=== PATIENT | male | born 1975 | race Caucasian/White ===

== ENCOUNTER 2018-01-25 16:22 | Emergency (ER) | payer OTHER ==
[~2018-01-25] VITALS: Ht 165.1 cm; Wt 70.0 kg
[~2018-01-25 16:22] MED LIST: ACETAMINOP160 MG/51 GT; ACETAMINOP650 MG/20. PEG; ACETAMINOPHEN325 M1 GT; ADULT MUCU100 MG/5 M G-TUBE; ATIVAN2 MG/1 ML G-TUBE; AVELOX400 MG G-TUBE; AVELOX400 MG PO; Ativan GT; BACTERICIN30 GM TP; BENEFIBER1 EACH PEG; BISAC-EVAC10 MG PR; BISACODYL SUPP10 MG RC; CALTRATE 6001 TABLE1 GT; CEFEPIME HCL2 GM IM; CELEXA10 MG PEG; CERTA-VITE240 ML GT; CETIRIZINE HCL10 M2 GT; CLEOCIN300 MG PO; CLONAZEPAM0.5 MG G-TUBE; CLONAZEPAM1 MG GT; COLACE10 MG/ML GT; COLACE10 MG/ML PEG; DEPAKENE250 MG/5 M GT; DEPAKOTE SPRIN125 MG GT; DIOCTO50 MG/5 ML GT; DOCU LIQUI50 MG/5 ML GT; DOCU SOFT100 MG PEG; DULCOLAX10 MG PR; DUONEB 2.5-0.5 M3 ML AEROSOL; DUONEB 2.5-0.5 M3 ML IH; DUONEB3 ML IH; ENOXAPARIN40 MG/0.4 SC; FLEET ENEMA-AD118 ML PR; FUROSEMIDE40 MG GT; GLYCOLAX17 GM G-TUBE; GUIATUSS DM SY240 ML GT; GUIATUSS100 MG/5 M GT; Heparin Sodium SC; IBUPROFEN400 MG G-TUBE; K-SOL20 MEQ/15 GT; LEVOTHYROXINE100 MCG G-TUBE; LEVOTHYROXINE75 MCG GT; LORATADINE10 M2 GT; MAXIPIME2 GM IV; MIRALAX17 GM GT; MIRALAX255 GM GT; MUCUS RELIEF400 MG GT; MULTIVITAM9 MG/15 M1 GT; MULTIVITAMIN1 EAC2 G-TUBE; NASAL SPRAY30 M1 NS; OCEAN NASAL 0.645 ML BOTH NARES; ONE-A-DAY ESSE1 EAC1 GT; OSCAL, OYSTER500 MG G-TUBE; PHENERGAN1.25 MG/ML PEG; PREVACID SOLUTA30 MG GT; PREVACID30 MG GT; PROSOURCE LIQUI30 ML GT; PROTONIX40 MG GT; QUETIAPINE FUMA25 MG PO; QUETIAPINE FUMA50 MG GT; RANITIDINE HCL150 MG GT; RISAMINE OINTM113 GM TP; ROBITUSSIN100 MG/5 M GT; SALINE MIST45 ML BOTH NARES; SALINE NASAL SP45 ML BOTH NARES; SEROQUEL100 MG G-TUBE; SEROQUEL100 MG GT; SEROQUEL12.5 MG GT; SEROQUEL200 MG GT; SEROQUEL200 MG PEG; SEROQUEL300 MG GT; SEROQUEL50 MG GT; SILACE50 MG/5 ML GT; SILVER NITRATE30 GM TP; SODIUM CHLORIDE45 ML BOTH NARES; SYNTHROID75 MCG GT; VALPROIC A250 MG/5 M G-TUBE; VALPROIC A250 MG/5 M GT; VANCOMYCIN1500 MG/25 IV; VITAMIN D31000 UNI2 GT; VITAMIN D31000 UNIT GT; ZANTAC150 MG G-TUBE; ZANTAC150 MG GT; ZOSYN3.375 GM/5 IV; ZYRTEC10 M2 PEG; ZYRTEC10 M3 GT; Zantac GT; Zithromax PEG; [UNRECOGNIZED DRUG - OTHER] GT; [UNRECOGNIZED DRUG - OTHER] TP
[2018-01-25 17:17] LABS: HEMATOCRIT 46.8 % (38.0-50.0); HEMOGLOBIN 15.4 G/DL (12.5-16.6); MCH 29.6 PG (29.0-34.0); MCHC 32.9 G/DL (30.0-36.0); MCV 89.8 FL (86-99); PLATELET COUNT 247 K/uL (156-360); RBC DIS.WIDTH-CV 12.9 % (11.8-14.6); RBC DIS.WIDTH-SD 42.1 % (39-53); RED BLOOD COUNT 5.21 M/uL (4.00-5.50); WHITE BLOOD COUNT 8.1 K/uL (4.1-10.2)
[2018-01-25 17:25] LABS: CHLORIDE 101 mEq/L (99-109); POTASSIUM 4.4 mEq/L (3.7-5.4); SODIUM 143 mEq/L (136-147)
[2018-01-25 17:27] LABS: GLUCOSE 81 mg/dL (70-99)
[2018-01-25 17:30] LABS: CREATININE 0.6 mg/dL (0.6-1.3); GFR ESTIMATE (CALCULATED) > 59 mL/min/ (58.99-99999)
[2018-01-25 17:31] LABS: UREA NITROGEN (BUN) 18 mg/dL (9-23)
[2018-01-25 18:21] LABS: APPEARANCE SL.HAZY ((CLEAR)); BILIRUBIN NEGATIVE; BLOOD NEGATIVE; COLOR YELLOW ((YELLOW)); GLUCOSE (STRIP) NEGATIVE; KETONES 5; LEUKOCYTES NEGATIVE; NITRITE NEGATIVE; PROTEIN (STRIP) NEGATIVE
[2018-01-25 18:25] LABS: BACTERIA NONE SEEN /HPF; EPITHELIAL CELLS NONE SEEN /HPF; MUCUS NONE SEEN /LPF; RED BLOOD CELLS 0-5 /HPF (0-5); UCUL ADDED? NO; WHITE BLOOD CELLS 0-5 /HPF (0-5)
[2018-01-26 01:12] VITALS: BP 102/75
== END 2018-01-26 01:43 ==
LOC: EME 16:22
PROVIDERS: Emergency Medicine
DX: J18.9 Pneumonia, unspecified organism (principal); R09.02 Hypoxemia; J45.909 Unspecified asthma, uncomplicated; K21.9 Gastro-esophageal reflux disease without esophagitis; M81.0 Age-related osteoporosis without current pathological fracture; R56.9 Unspecified convulsions; F41.9 Anxiety disorder, unspecified; F32.9 Major depressive disorder, single episode, unspecified; F31.9 Bipolar disorder, unspecified; Z88.5 Allergy status to narcotic agent; Z88.0 Allergy status to penicillin; Z88.1 Allergy status to other antibiotic agents
CPT/HCPCS: 71045; 71275; 80048; 81003; 83605; 85027; 87040; 94640; 99281; 99285; J0692; J7030

== ENCOUNTER 2018-04-24 12:28 | Inpatient (IN) | payer OTHER ==
[~2018-04-24] VITALS: Ht 177.8 cm; Wt 58.1 kg
[~2018-04-24 12:28] MED LIST changes: +KLONOPIN0.5 M1 GT
[2018-04-24 13:35] LABS: BASOPHIL (%) 0.2 % (0-1); BASOPHIL COUNT 0.1 K/uL (0-0.1); EOSINOPHIL (%) 0 % (0-5); HEMATOCRIT 43.7 % (38.0-50.0); HEMOGLOBIN 14.9 G/DL (12.5-16.6); IMMATURE GRANULOCYTE (%) 0.6 % (0.0-0.7); LYMPHOCYTE COUNT 0.8 K/uL (1.0-2.8); MCHC 34.1 G/DL (30.0-36.0); MCV 88.1 FL (86-99); MONOCYTE (%) 7.1 % (3-12); MONOCYTE COUNT 1.4 K/uL (0-0.8); NEUTROPHIL (%) 88.1 % (45-76); NEUTROPHIL COUNT 17.7 K/uL (1.8-6.4); PLATELET COUNT 207 K/uL (156-360); RBC DIS.WIDTH-CV 12.4 % (11.8-14.6); RBC DIS.WIDTH-SD 39.9 % (39-53); RED BLOOD COUNT 4.96 M/uL (4.00-5.50); WHITE BLOOD COUNT 20.1 K/uL (4.1-10.2)
[2018-04-24 13:46] LABS: ALBUMIN 3.7 g/dL (3.2-4.8)
[2018-04-24 13:47] LABS: CHLORIDE 101 mEq/L (99-109); POTASSIUM 4.1 mEq/L (3.7-5.4); SODIUM 138 mEq/L (136-147)
[2018-04-24 13:49] LABS: GLUCOSE 99 mg/dL (70-99); TOTAL PROTEIN 6.5 g/dL (6.4-8.3)
[2018-04-24 13:51] LABS: TOTAL BILIRUBIN 0.6 mg/dL (0.0-1.0)
[2018-04-24 13:51] LABS: APPEARANCE CLEAR ((CLEAR)); BILIRUBIN NEGATIVE; BLOOD NEGATIVE; COLOR YELLOW ((YELLOW)); GLUCOSE (STRIP) NEGATIVE; KETONES 5; LEUKOCYTES NEGATIVE; NITRITE NEGATIVE; PROTEIN (STRIP) NEGATIVE; SPECIFIC GRAVITY 1.016 (1.000-1.030); UCUL ADDED? NO
[2018-04-24 13:52] LABS: ALKALINE PHOSPHATASE 63 IU/L (3-129)
[2018-04-24 13:53] LABS: CREATININE 0.7 mg/dL (0.6-1.3); GFR ESTIMATE (CALCULATED) > 59 mL/min/ (58.99-99999)
[2018-04-24 13:54] LABS: AST (GOT) 17 IU/L (2-34); UREA NITROGEN (BUN) 18 mg/dL (9-23)
[2018-04-24 13:56] LABS: ALT (GPT) 14 IU/L (3-49); LIPASE 31 U/L (1.0-51.0)
[2018-04-24] MEDS ORDERED: ONDANSETRON ODT4 MG GT (17:49)
[2018-04-24] MEDS ORDERED: SENNA8.6 MG GT (17:50)
[2018-04-24] MEDS ORDERED: RANITIDINE15 MG/1 ML GT (17:51)
[2018-04-24] MEDS ORDERED: DEPAKOTE SPRIN125 MG GT ×2 (17:52)
[2018-04-24] MEDS ORDERED: TRANSDERM-SCOP1 EACH TD (17:53)
[2018-04-24] MEDS ORDERED: MULTI-VITE9 MG/15 ML GT (17:54)
[2018-04-24 21:42] VITALS: BP 134/70
[2018-04-24 23:54] VITALS: BP 114/58
[2018-04-25 04:04] VITALS: BP 131/61
[2018-04-25 06:01] LABS: BASOPHIL (%) 0.4 % (0-1); BASOPHIL COUNT 0.1 K/uL (0-0.1); EOSINOPHIL (%) 0.5 % (0-5); EOSINOPHIL COUNT 0.1 K/uL (0-0.3); HEMOGLOBIN 13.5 G/DL (12.5-16.6); IMMATURE GRANULOCYTE (%) 0.6 % (0.0-0.7); LYMPHOCYTE (%) 11.5 % (15-42); LYMPHOCYTE COUNT 1.9 K/uL (1.0-2.8); MCH 29.3 PG (29.0-34.0); MCHC 32.9 G/DL (30.0-36.0); MCV 89.1 FL (86-99); MONOCYTE COUNT 0.8 K/uL (0-0.8); NEUTROPHIL COUNT 13.2 K/uL (1.8-6.4); PLATELET COUNT 206 K/uL (156-360); RBC DIS.WIDTH-CV 12.5 % (11.8-14.6); RBC DIS.WIDTH-SD 41.1 % (39-53)
[2018-04-25 06:25] LABS: CHLORIDE 107 MEQ/L (99-109); CREATININE 0.5 MG/DL (0.6-1.3); GFR ESTIMATE (CALCULATED) > 59 mL/min/ (58.99-99999); GLUCOSE 84 mg/dL (70-99); POTASSIUM 4.3 MEQ/L (3.7-5.4); SODIUM 141 MEQ/L (136-147); UREA NITROGEN (BUN) 12 mg/dL (9-23)
[2018-04-25 07:52] VITALS: BP 120/68
[2018-04-25 16:38] VITALS: BP 126/78
[2018-04-26 00:54] VITALS: BP 136/69
[2018-04-26 04:09] LABS: BASOPHIL (%) 0.5 % (0-1); BASOPHIL COUNT 0.1 K/uL (0-0.1); EOSINOPHIL (%) 1.3 % (0-5); EOSINOPHIL COUNT 0.1 K/uL (0-0.3); HEMATOCRIT 41.5 % (38.0-50.0); HEMOGLOBIN 14.2 G/DL (12.5-16.6); IMMATURE GRANULOCYTE (%) 0.9 % (0.0-0.7); LYMPHOCYTE (%) 19.5 % (15-42); LYMPHOCYTE COUNT 1.9 K/uL (1.0-2.8); MCHC 34.2 G/DL (30.0-36.0); MCV 87.7 FL (86-99); MONOCYTE (%) 7.2 % (3-12); MONOCYTE COUNT 0.7 K/uL (0-0.8); NEUTROPHIL (%) 70.6 % (45-76); NEUTROPHIL COUNT 6.7 K/uL (1.8-6.4); PLATELET COUNT 191 K/uL (156-360); RBC DIS.WIDTH-CV 12.3 % (11.8-14.6); RBC DIS.WIDTH-SD 39.9 % (39-53); RED BLOOD COUNT 4.73 M/uL (4.00-5.50); WHITE BLOOD COUNT 9.5 K/uL (4.1-10.2)
[2018-04-26 04:24] LABS: CREATININE 0.5 mg/dL (0.6-1.3); GFR ESTIMATE (CALCULATED) > 59 mL/min/ (58.99-99999); UREA NITROGEN (BUN) 6 mg/dL (9-23)
[2018-04-26 06:06] LABS: CHLORIDE 104 MEQ/L (99-109); POTASSIUM 4.1 MEQ/L (3.7-5.4); SODIUM 141 MEQ/L (136-147)
[2018-04-26 06:11] LABS: GLUCOSE 115 mg/dL (70-99)
[2018-04-26 08:09] VITALS: BP 123/67
[2018-04-26] MEDS ORDERED: AUGMENTIN875 MG GT (14:23)
== END 2018-04-26 17:03 | DRG 871 ==
LOC: EME 12:28 → 5SOUTH 18:14 → EDOF 18:14 → ENRESERV 18:15 → 5SOUTH 20:43
PROVIDERS: Emergency Medicine; Hospitalist; Physician Assistant
DX: A41.9 Sepsis, unspecified organism (principal); J96.01 Acute respiratory failure with hypoxia; J69.0 Pneumonitis due to inhalation of food and vomit; G93.1 Anoxic brain damage, not elsewhere classified; R56.9 Unspecified convulsions; R13.10 Dysphagia, unspecified; Z93.1 Gastrostomy status; R65.20 Severe sepsis without septic shock; Y95 Nosocomial condition; Z87.01 Personal history of pneumonia (recurrent); S06.9X9S Unspecified intracranial injury with loss of consciousness of unspecified duration, sequela; J98.11 Atelectasis; F09 Unspecified mental disorder due to known physiological condition; E03.9 Hypothyroidism, unspecified; K59.00 Constipation, unspecified; J42 Unspecified chronic bronchitis; J45.909 Unspecified asthma, uncomplicated; K21.9 Gastro-esophageal reflux disease without esophagitis; M81.0 Age-related osteoporosis without current pathological fracture
CPT/HCPCS: 71045; 71250; 74176; 80048; 80053; 80202; 81003; 82948; 83605; 83690; 83735; 85025; 87040; 87070; 87205; 87449; 87502; 87641; 94640 76; 94667; 94760; 94799; 99202; 99281; 99285; J0692; J1650; J3370; J7120

== ENCOUNTER → 2018-06-14 | Outpatient (CLI) | payer OTHER ==
[~2018-06-14] MED LIST changes: +AUGMENTIN875 MG GT; +MULTI-VITE9 MG/15 ML GT; +ONDANSETRON ODT4 MG GT; +RANITIDINE15 MG/1 ML GT; +SENNA8.6 MG GT; +TRANSDERM-SCOP1 EACH TD
== END | disposition home or self-care (01) ==
LOC: RAD 09:49
DX: R91.8 Other nonspecific abnormal finding of lung field (principal)
CPT/HCPCS: 71260; 74177